=== PATIENT | female | born 1990 | race American Indian/Alaskan Native ===

== ENCOUNTER 2016-09-15 14:11 | Emergency (ER) | payer MEDICAID ==
[2016-09-15 14:20] VITALS: BP 143/77
[2016-09-15] MEDS ORDERED: Penicillin G Benzathine/Procaine 600-600 1.2 Millunits/2 ML Syringe IM ONE (14:43)
[2016-09-15] MEDS ORDERED: Acetaminophen/HYDROcodone 325-10 MG Tab PO ONE (14:43)
--- NOTE | 2016-09-15 14:43 | EDM.PDOC ---
ED HPI ENT - General Chief Complaint: ENT Problem Stated Complaint: [id number] TOOTH PAIN/EARACHE Time Seen by Provider: 09/15/16 14:38 Source of Information: Reports: Patient History Limitations: Reports: No limitations - History of Present Illness INITIAL COMMENTS - FREE TEXT/NARRATIVE: 26 White yo Female c/o left sided toothache and jaw pain since last night Pt. had dental work w/ extractions last month. Pt. denies fever or chills Symptom Onset Date: 09/14/16 Symptom Onset Time: 13:00 Timing/Duration: Reports: Day(s): Severity: moderate Location: Reports: mouth (left jaw swelling) Quality: Reports: Ache Improves with: Reports: None Associated Symptoms: Reports: no other symptoms - Related Data Allergies/ADRs: Allergies Allergy/AdvReac Type Severity Reaction Status Date / Time No Known Allergies Allergy Verified 09/15/16 14:25 Home Meds: Home Meds Ferrous Sulfate 325 mg PO TID 04/04/14 [History] Acetaminophen with Codeine [Tylenol with Codeine #3 Tablet] 325 mg PO ASDIRECTED PRN 05/22/14 [History] Insulin Detemir [Levemir] 30 unit SQ BEDTIME 02/23/16 [History] FLUoxetine HCl [Prozac] 20 mg PO DAILY 05/31/16 [History] Insulin Aspart [Novolog Flexpen] 18 units SUBCUT TIDMEALS 05/31/16 [History] Ibuprofen [Motrin] 600 mg PO Q6H 09/15/16 [History] Past Medical History - Past Health History Medical/Surgical History: Denies Medical/Surgical History Cardiovascular History: Reports: None Respiratory History: Reports: Asthma Other Respiratory History: hx of asthma Gastrointestinal History: Reports: None Genitourinary History: Reports: None 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 OB/BYN History: Three C/s's Musculoskeletal History: Reports: Back pain, chronic Neurological History: Reports: Migraines Psychiatric History: Reports: Anxiety, Depression Endocrine/Metabolic History: Reports: Diabetes, type I Other Endocrine/Metabolic History: insulin dependent during pregnacy Hematologic History: Reports: Anemia Immunologic History: Reports: None Oncologic (Cancer) History: Reports: None Dermatologic History: Reports: None - Infectious Disease History Infectious Disease History: Reports: None - Past Surgical History Head Surgeries/Procedures: Reports: None HEENT Surgical History: Reports: Other (see below) Other HEENT Surgeries/Procedures: typanostomy tube placement GI Surgical History: Reports: Cholecystectomy, EGD Female Surgical History: Reports: section Other Female Surgeries/Procedures: x3 Social & Family History - Family History Family Medical History: Noncontributory - Tobacco Use Smoking Status *Q: Former Smoker Years of Tobacco use: 10 Packs/Tins Daily: 1 Used Tobacco, but Quit: Yes Month Tobacco Last Used: 01/2016 Second Hand Smoke Exposure: No - Caffeine Use Caffeine Use: Reports: None - Alcohol Use Days Per Week of Alcohol Use: 0 - Recreational Drug Use Recreational Drug Use: No ED ROS ENT - Review of Systems Review Of Systems: See Below Constitutional: Reports: no symptoms HEENT: Reports: Other (left side toothache w/ jaw swelling) Cardiovascular: Reports: No symptoms Endocrine: Reports: no symptoms GI/Abdominal: Reports: No symptoms : Reports: no symptoms Musculoskeletal: Reports: no symptoms Skin: Reports: no symptoms Neurological: Reports: No Symptoms Psychiatric: Reports: No symptoms Hematologic/Lymphatic: Reports: no symptoms Immunologic: Reports: no symptoms ED EXAM, ENT - Physical Exam Exam: See Below Exam Limited By: No limitations General Appearance: alert, no apparent distress, severe distress Eye Exam: bilateral eye: PERRL Ears: normal external exam Nose: normal inspection Mouth/Throat: Dental pain, Dental tenderness Head: atraumatic Neck: normal inspection Respiratory/Chest: no respiratory distress Cardiovascular: normal peripheral pulses Back: normal inspection Extremities: normal inspection Neurological: alert, oriented, CN II-XII intact Psychiatric: normal affect Skin: Warm, Erythema (left jaw area w/ soft tissue) Lymphatic: no adenopathy Course - Vital Signs Text/Narrative:: discussed with patient Last Recorded V/S: Last Vital Signs Temp 36.7 C 09/15/16 14:20 Pulse 58 L 09/15/16 14:20 Resp 20 09/15/16 14:20 BP 143/77 H 09/15/16 14:20 Pulse Ox 100 09/15/16 14:20 Departure - Departure Time of Disposition: 14:49 Disposition: Home, Self-Care 01 Condition: good Clinical Impression: Fracture of tooth Qualifiers: Encounter type: initial encounter Fracture type: closed Qualified Code(s): S02.5XXA - Fracture of tooth (traumatic), initial encounter for closed fracture Forms: ED Department Discharge Additional Instructions: Good Oral Hygiene Take the [place] for pain - 5/325 take 1 tid # 30 F/U w/ Dentist on Saturday
== END 2016-09-15 14:59 | disposition home or self-care (01) ==
LOC: DL.ED 14:11
DX: S02.5XXA Fracture of tooth (traumatic), initial encounter for closed fracture (principal); J45.909 Unspecified asthma, uncomplicated; F41.9 Anxiety disorder, unspecified; F32.9 Major depressive disorder, single episode, unspecified; E10.9 Type 1 diabetes mellitus without complications; D64.9 Anemia, unspecified; Z87.891 Personal history of nicotine dependence; Z79.4 Long term (current) use of insulin; Z90.49 Acquired absence of other specified parts of digestive tract; Z79.899 Other long term (current) drug therapy; X58.XXXA Exposure to other specified factors, initial encounter
CPT/HCPCS: 96372; 99282; A9270; J0558

== ENCOUNTER 2016-12-05 14:24 | Emergency (ER) | payer MEDICAID ==
[2016-12-05 14:31] VITALS: BP 124/78
--- NOTE | 2016-12-05 14:40 | EDM.PDOC ---
ED HPI GENERAL MEDICAL PROBLEM - General Chief Complaint: Lower Extremity Injury/Pain Stated Complaint: [id number] PROBLEM WITH LEFT FOOT Time Seen by Provider: 12/05/16 14:39 Source of Information: Reports: Patient, RN, RN Notes Reviewed History Limitations: Reports: No Limitations - History of Present Illness INITIAL COMMENTS - FREE TEXT/NARRATIVE: Complaining of pain in left foot x 4-5 days without injury. Pain is worse in the mornings. Pain is localized to medial left midfoot and heel. Quality: Reports: Ache Severity: Moderate Improves with: Reports: None Associated Symptoms: Reports: No Other Symptoms Left Feet Pain Score (Numeric/FACES): 8 - Related Data Allergies Allergy/AdvReac Type Severity Reaction Status Date / Time No Known Allergies Allergy Verified 09/15/16 14:25 Home Meds: Home Meds Ferrous Sulfate 325 mg PO TID 04/04/14 [History] Acetaminophen with Codeine [Tylenol with Codeine #3 Tablet] 325 mg PO ASDIRECTED PRN 05/22/14 [History] Insulin Detemir [Levemir] 30 unit SQ BEDTIME 02/23/16 [History] FLUoxetine HCl [Prozac] 20 mg PO DAILY 05/31/16 [History] Insulin Aspart [Novolog Flexpen] 18 units SUBCUT TIDMEALS 05/31/16 [History] Ibuprofen [Motrin] 600 mg PO Q6H 09/15/16 [History] Past Medical History - Past Health History Medical/Surgical History: Denies Medical/Surgical History Cardiovascular History: Reports: None Respiratory History: Reports: Asthma Other Respiratory History: hx of asthma Gastrointestinal History: Reports: None Genitourinary History: Reports: None 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 OB/BYN History: Three C/s's Musculoskeletal History: Reports: Back Pain, Chronic Neurological History: Reports: Migraines Psychiatric History: Reports: Anxiety, Depression Endocrine/Metabolic History: Reports: Diabetes, Type I Other Endocrine/Metabolic History: insulin dependent during pregnacy Hematologic History: Reports: Anemia Immunologic History: Reports: None Oncologic (Cancer) History: Reports: None Dermatologic History: Reports: None - Infectious Disease History Infectious Disease History: Reports: None - Past Surgical History HEENT Surgical History: Reports: Other (See Below) Female Surgical History: Reports: Section Social & Family History - Family History Family Medical History: Noncontributory - Tobacco Use Smoking Status *Q: Former Smoker Years of Tobacco use: 10 Packs/Tins Daily: 1 Used Tobacco, but Quit: Yes Month Tobacco Last Used: 01/2016 Second Hand Smoke Exposure: No - Caffeine Use Caffeine Use: Reports: None - Alcohol Use Days Per Week of Alcohol Use: 0 - Recreational Drug Use Recreational Drug Use: No Review of Systems - Review of Systems Review Of Systems: ROS reveals no pertinent complaints other than HPI. ED EXAM, GENERAL - Physical Exam Exam: See Below Exam Limited By: No Limitations General Appearance: Alert, WD/WN, No Apparent Distress Back Exam: Normal Inspection, Full Range of Motion, NT Extremities: Other (Tender to palpate at medial left posterior mid foot or heel. No visible swelling, bruising, or deformity. Skin intact. Full ROM.) Neurological: Alert, Oriented, CN II-XII Intact, Normal Cognition, Normal Gait, Normal Reflexes, No Motor/Sensory Deficits Psychiatric: Normal Affect, Normal Mood Skin Exam: Warm, Dry, Intact, Normal Color, No Rash Course - Vital Signs Last Recorded V/S: Last Vital Signs Temp 36.0 C 12/05/16 14:30 Pulse 118 H 12/05/16 14:30 Resp 18 12/05/16 14:30 BP 124/78 12/05/16 14:30 Pulse Ox 100 12/05/16 14:30 - Orders/Labs/Meds Orders: Active Orders 24 hr Category Date Time Status Arnav Bandage [RC] ONETIME Care 12/05/16 15:53 Active - Radiology Interpretation Free Text/Narrative:: X-ray of left foot: Per rad report negative. Departure - Departure Time of Disposition: 15:51 Disposition: Home, Self-Care 01 Condition: Good Clinical Impression: Plantar fasciitis of left foot - Discharge Information Instructions: Plantar Fasciitis With Rehab-SportsMed Referrals: Leyla Portillo MD [Primary Care Provider] - Forms: ED Department Discharge Additional Instructions: Follow up in clinic next week for recheck. - My Orders Last 24 Hours: My Active Orders 12/05/16 15:53 Arnav Bandage [RC] ONETIME - Assessment/Plan Last 24 Hours: My Active Orders 12/05/16 15:53 Arnav Bandage [RC] ONETIME
--- NOTE | 2016-12-05 16:56 | CR ---
Clinical history: 26-year-old gravid ("2 months") female with left midfoot and heel pain. Interpretation: (Patient "double shielded") Dense reactive sclerosis talonavicular surface of the navicular bone. Recommend comparison oblique v iew "normal" right foot. (If symptomatology and clinical suspicion persists suggest orthopedic consultation and MRI of the fo ot be considered) No sign of foreign body, left foot fracture or dislocation. No heel spurs.
== END 2016-12-05 16:00 | disposition home or self-care (01) ==
LOC: DL.ED 14:24
DX: M72.2 Plantar fascial fibromatosis (principal); J45.909 Unspecified asthma, uncomplicated; G43.909 Migraine, unspecified, not intractable, without status migrainosus; F41.9 Anxiety disorder, unspecified; F32.9 Major depressive disorder, single episode, unspecified; E10.9 Type 1 diabetes mellitus without complications; D64.9 Anemia, unspecified; Z87.891 Personal history of nicotine dependence
CPT/HCPCS: 73630-LT; 99283

== ENCOUNTER 2017-09-04 15:05 | Emergency (ER) | payer SELFPAY ==
[2017-09-04 15:26] VITALS: BP 152/89
[2017-09-04] MEDS ORDERED: Amoxicillin 500 MG Cap PO ONE (15:38)
[2017-09-04] MEDS ORDERED: metroNIDAZOLE 250 MG Tab PO ONE (15:38)
[2017-09-04] MEDS ORDERED: traMADol 50 MG Tab PO ONE (15:39)
--- NOTE | 2017-09-06 13:54 | EDM.PDOC ---
Scribed by Matilda Rollins 09/06/17 [id number] for Soto Gordon MD ED HPI GENERAL MEDICAL PROBLEM - General Chief Complaint: ENT Problem Stated Complaint: [id number] TROUBLE WITH TOOTH Time Seen by Provider: 09/04/17 15:33 Source of Information: Reports: Patient, RN, RN Notes Reviewed History Limitations: Reports: No Limitations - History of Present Illness INITIAL COMMENTS - FREE TEXT/NARRATIVE: Patient presents with complaint of dental pain at left upper molar for greater than 1 month. Over the past week the pain has become severe and sharp. Patient reports no relief with Tylenol. She can't get into the dentist for another 2 weeks. Today she began to have swelling of the left face. Onset: Gradual Duration: Getting Worse Location: Reports: Face Quality: Reports: Ache Severity: Severe Improves with: Reports: None Worsens with: Reports: None Associated Symptoms: Reports: No Other Symptoms Left Upper Oral/Mouth Pain Score (Numeric/FACES): 10 - Related Data Allergies Allergy/AdvReac Type Severity Reaction Status Date / Time No Known Allergies Allergy Verified 05/05/17 13:17 Home Meds: Home Meds Ferrous Sulfate 325 mg PO TID 04/04/14 [History] Insulin Detemir [Levemir] 40 unit SQ BEDTIME 02/23/16 [History] FLUoxetine HCl [Prozac] 20 mg PO DAILY 05/31/16 [History] Insulin Aspart [Novolog Flexpen] 18 units SUBCUT TIDMEALS 05/31/16 [History] Past Medical History - Past Health History Medical/Surgical History: Denies Medical/Surgical History Cardiovascular History: Reports: None Respiratory History: Reports: Asthma Other Respiratory History: hx of asthma Gastrointestinal History: Reports: None Genitourinary History: Reports: None 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 OB/BYN History: Three C/s's Musculoskeletal History: Reports: Back Pain, Chronic Neurological History: Reports: Migraines Psychiatric History: Reports: Anxiety, Depression Endocrine/Metabolic History: Reports: Diabetes, Type II, Obesity/BMI 30+ Other Endocrine/Metabolic History: Insulin Dependent Hematologic History: Reports: Anemia Immunologic History: Reports: None Oncologic (Cancer) History: Reports: None Dermatologic History: Reports: None - Infectious Disease History Infectious Disease History: Reports: MRSA - Past Surgical History Head Surgeries/Procedures: Reports: None HEENT Surgical History: Reports: Other (See Below) Female Surgical History: Reports: Section Other Female Surgeries/Procedures: C/S x4 Social & Family History - Family History Family Medical History: Noncontributory - Tobacco Use Smoking Status *Q: Current Every Day Smoker Years of Tobacco use: 5 Packs/Tins Daily: 0.5 Used Tobacco, but Quit: Yes Month/Year Tobacco Last Used: 05/2017 Second Hand Smoke Exposure: No - Caffeine Use Caffeine Use: Reports: Soda - Alcohol Use Days Per Week of Alcohol Use: 0 - Recreational Drug Use Recreational Drug Use: No - Living Situation & Occupation Living situation: Reports: with Family ED ROS ENT - Review of Systems Review Of Systems: ROS reveals no pertinent complaints other than HPI. ED EXAM, ENT - Physical Exam Exam: See Below Exam Limited By: No Limitations General Appearance: Alert, WD/WN, No Apparent Distress Eye Exam: Bilateral Eye: Normal Inspection Ears: Normal External Exam, Normal Canal, Hearing Grossly Normal, Normal TMs Nose: Normal Inspection, Normal Mucousa, No Blood Mouth/Throat: Normal Lips, Normal Oropharynx, Dental Abcess (left maxillary molar), Dental Pain, Dental Tenderness, Gum Swelling Head: Facial Swelling (mild at left face with no erythema.) Neck: Normal Inspection, Supple, Non-Tender, Full Range of Motion Respiratory/Chest: No Respiratory Distress Cardiovascular: Regular Rate, Rhythm Neurological: Alert, Oriented, CN II-XII Intact, Normal Cognition, Normal Gait, Normal Reflexes, No Motor/Sensory Deficits Psychiatric: Normal Affect, Normal Mood Skin: Warm, Dry, Intact, Normal Color, No Rash Course - Vital Signs Last Recorded V/S: Last Vital Signs Temp 37.1 C 09/04/17 15:10 Pulse 65 09/04/17 15:10 Resp 16 09/04/17 15:10 BP 152/89 H 09/04/17 15:10 Pulse Ox - Orders/Labs/Meds Meds: Medications Discontinued Medications Generic Name Dose Route Start Last Admin Trade Name Pedro Luisq PRN Reason Stop Dose Admin Amoxicillin 500 mg 09/04/17 15:38 09/04/17 16:48 Amoxil PO 09/04/17 15:39 Not Given ONETIME ONE Metronidazole 50 mg 09/04/17 15:38 09/04/17 16:48 Metronidazole PO 09/04/17 15:39 Not Given ONETIME ONE Tramadol HCl 50 mg 09/04/17 15:39 09/04/17 16:48 Ultram PO 09/04/17 15:40 Not Given ONETIME ONE Departure - Departure Time of Disposition: 15:46 Disposition: Home, Self-Care 01 Condition: Good Clinical Impression: Dental caries, Dental abscess - Discharge Information Instructions: Dental Abscess, [id number] Forms: ED Department Discharge Additional Instructions: RX: Amoxicillin 500mg. RX: Flagyl 500mg. RX: Tylenol #3. *DO NOT DRIVE while under the influence of this medication. RX: Viscous Liodcaine 2%. Follow up with dentist at first available appointment. I have read and agree with the documentation that has been completed regarding this visit. By signing this record, I attest that the documentation was completed in my physical presence and is an accurate record of the encounter.
== END 2017-09-04 16:02 | disposition home or self-care (01) ==
LOC: DL.ED 15:05
DX: K04.7 Periapical abscess without sinus (principal); K02.9 Dental caries, unspecified; E11.9 Type 2 diabetes mellitus without complications; E66.9 Obesity, unspecified; Z79.4 Long term (current) use of insulin; F17.210 Nicotine dependence, cigarettes, uncomplicated; Z79.899 Other long term (current) drug therapy
CPT/HCPCS: 99282

== ENCOUNTER 2019-01-31 11:29 | Emergency (ER) | payer MEDICAID ==
[2019-01-31] MEDS ORDERED: Furosemide 40 MG/4 ML VIAL IVPUSH ONE (12:11)
[2019-01-31] MEDS ORDERED: Acetaminophen 325 MG Tab PO ONE (12:11)
[2019-01-31] MEDS ORDERED: diphenhydrAMINE 50 MG/ML SDV IV ONE (12:11)
[2019-01-31 12:17] LABS: ANION GAP 13.2; CHLORIDE,CL 103 mmol/L (101-111); SODIUM,NA 136 mmol/L (135-145)
--- NOTE | 2019-01-31 13:08 | EDM.PDOC ---
Scribed by Matilda Rollins 01/31/19 1147 for Soto Gordon MD ED HPI GENERAL MEDICAL PROBLEM - General Chief Complaint: General Stated Complaint: LIGHT HEADED/SIDE PAINS Time Seen by Provider: 01/31/19 11:39 Source of Information: Reports: Patient, Old Records, RN, RN Notes Reviewed History Limitations: Reports: No Limitations - History of Present Illness INITIAL COMMENTS - FREE TEXT/NARRATIVE: Patient presents to ER with complaint of 3 days duration of intermittent lightheadedness/dizziness especially when bending over. Pt states she has come close to fainting several times but has not had a complete LOC. She reports right sided abdominal pain for the last couple of days. Pt also c/o generalized body, flank, and back pains without specific injury. She has felt short of breath with exertion, but also thinks that it may be related to anxiety and depression because she has "had a hard and stressful week", but does not wish to share the details. Pt reports heavy menses, and is current on her period. She denies rectal bleeding, black, bloody, or tarry stool. She denies cough, N/V /D, fevers, abdominal pain, or headache. She does not think she is , but hasn't checked a test. She is unsure of her LMP. 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 Onset: Gradual Duration: Day(s): (3), Intermittent, Waxing/Waning Location: Reports: Generalized Quality: Reports: Ache Severity: Moderate Improves with: Reports: None Worsens with: Reports: None Associated Symptoms: Reports: No Other Symptoms Generalized Pain Score (Numeric/FACES): 5 - Related Data Allergies Allergy/AdvReac Type Severity Reaction Status Date / Time No Known Allergies Allergy Verified 01/31/19 11:40 Home Meds: Home Meds Insulin Detemir [Levemir] 40 unit SQ BEDTIME 02/23/16 [History] FLUoxetine HCl [Prozac] 20 mg PO DAILY 05/31/16 [History] Insulin Aspart [Novolog Flexpen] 18 units SUBCUT TIDMEALS 05/31/16 [History] Past Medical History - Past Health History Medical/Surgical History: Denies Medical/Surgical History HEENT History: Reports: None Cardiovascular History: Reports: None Respiratory History: Reports: Asthma Other Respiratory History: hx of asthma Gastrointestinal History: Reports: None Genitourinary History: Reports: None 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: Other 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 OFFICER History: Three C/s's Musculoskeletal History: Reports: Back Pain, Chronic Neurological History: Reports: Migraines Psychiatric History: Reports: Anxiety, Depression Endocrine/Metabolic History: Reports: Diabetes, Type II, IDDM, Obesity/BMI 30+ Other Endocrine/Metabolic History: Insulin Dependent Hematologic History: Reports: Anemia Immunologic History: Reports: None Oncologic (Cancer) History: Reports: None Dermatologic History: Reports: None - Infectious Disease History Infectious Disease History: Reports: MRSA - Past Surgical History Head Surgeries/Procedures: Reports: None HEENT Surgical History: Reports: Other (See Below) Other HEENT Surgeries/Procedures: Respiratory Surgical History: Reports: None Female Surgical History: Reports: Section, Tubal Ligation Other Female Surgeries/Procedures: C/S x4 Social & Family History - Family History Family Medical History: Noncontributory - Caffeine Use Caffeine Use: Reports: Soda - Living Situation & Occupation Living situation: Reports: with Family Occupation: Employed ED ROS GENERAL - Review of Systems Review Of Systems: ROS reveals no pertinent complaints other than HPI. ED EXAM, GENERAL - Physical Exam Exam: See Below Exam Limited By: No Limitations General Appearance: Alert, WD/WN, No Apparent Distress Eye Exam: Bilateral Eye: EOMI, Normal Inspection, PERRL Ears: Normal External Exam, Hearing Grossly Normal Nose: Normal Inspection, Normal Mucosa, No Blood Throat/Mouth: Normal Inspection, Normal Lips, Normal Oropharynx, Normal Voice, No Airway Compromise Head: Atraumatic, Normocephalic Neck: Normal Inspection, Supple, Non-Tender, Full Range of Motion Respiratory/Chest: No Respiratory Distress, Lungs Clear, Normal Breath Sounds, No Accessory Muscle Use, Chest Non-Tender Cardiovascular: Normal Peripheral Pulses, Regular Rate, Rhythm, No Edema, No Murmur, Tachycardia GI/Abdominal: Normal Bowel Sounds, Soft, Non-Tender, No Organomegaly, No Distention, No Abnormal Bruit, No Mass (Female) Exam: Vaginal Bleeding Rectal (Female) Exam: Heme + Stool Back Exam: Normal Inspection, Full Range of Motion. No: CVA Tenderness (L), CVA Tenderness (R) Extremities: Normal Inspection Neurological: Alert, Oriented, CN II-XII Intact, Normal Cognition, Normal Gait, No Motor/Sensory Deficits Psychiatric: Depressed Mood, Flat Affect Skin Exam: Warm, Dry, Intact, Normal Color, No Rash EKG INTERPRETATION EKG Date: 01/31/19 Time: 11:42 Rhythm: NSR [place]: Normal P-Wave: Present QRS: Normal ST-T: Normal QT: Normal Comparison: NA - No Prior EKG Course - Vital Signs Last Recorded V/S: Last Vital Signs Temp 97.3 F 01/31/19 11:36 Pulse 109 H 01/31/19 11:36 Resp 16 01/31/19 11:36 BP 101/58 L 01/31/19 11:36 Pulse Ox 100 01/31/19 11:36 Orthostatic Blood Pressure [ 104/57 Standing] Orthostatic Blood Pressure [ 109/55 Sitting] Orthostatic Blood Pressure [ 114/55 Supine] - Orders/Labs/Meds Orders: Active Orders 24 hr Category Date Time Status EKG 12 Lead [EKG Documentation Completion] [RC] STAT Care 01/31/19 11:42 Active Orthostatic Vital Signs [RC] ASDIRECTED Care 01/31/19 11:41 Active Verify Patient Consent Obtain [RC] ASDIRECTED Care 01/31/19 12:11 Active CULTURE URINE [RM] Stat Lab 01/31/19 11:57 Received RED BLOOD CELLS LP [BBK] Stat Lab 01/31/19 11:50 Received TYPE AND SCREEN [BBK] Stat Lab 01/31/19 11:50 Received Blood Transfusion Reflex Orders [OM.PC] Routine Oth 01/31/19 12:11 Ordered Peripheral IV Insertion Adult [OM.PC] Urgent Oth 01/31/19 12:11 Ordered Transfuse Red Blood Cells [COMM] Stat Oth 01/31/19 12:11 Ordered Labs: Laboratory Tests 01/31/19 01/31/19 01/31/19 Range/Units 11:50 11:50 11:50 WBC 8.5 (5.0-10.0) 10^3/uL RBC 3.28 L (4.2-5.4) 10^6/uL Hgb 6.2 L* D (12.0-16.0) g/dL Hct 22.1 L (37.0-47.0) % MCV 67.4 L D (80-100) fL MCH 18.9 L (27.0-34.0) pg MCHC 28.1 L (33.0-35.0) g/dL Plt Count 242 (150-450) 10^3/uL Neut % (Auto) 76.2 H (42.2-75.2) % Lymph % (Auto) 13.0 L (20.5-50.1) % [place] % (Auto) 10.2 H (2-8) % Eos % (Auto) 0.2 L (1.0-3.0) % Baso % (Auto) 0.4 (0.0-1.0) % PT (9.0-12.0) SEC INR (0.9-1.2) APTT (22.0-34.0) SEC D-Dimer, Quantitative 699 H (0-400) ng/mL Sodium 136 (135-145) mmol/L Potassium 3.2 L (3.6-5.0) mmol/L Chloride 103 (101-111) mmol/L Carbon Dioxide 23.0 (21.0-31.0) mmol/L Anion Gap 13.2 BUN 5 L (7-18) mg/dL Creatinine 0.6 (0.6-1.3) mg/dL Est Cr Clr Drug Dosing TNP Estimated GFR (MDRD) > 60 BUN/Creatinine Ratio 8.33 Glucose 183 H (74-105) mg/dL Calcium 8.4 (8.4-10.2) mg/dl Total Bilirubin 0.5 (0.2-1.0) mg/dL AST 14 (10-42) IU/L ALT 10 (10-60) IU/L Alkaline Phosphatase 64 (42-121) IU/L Total Protein 7.0 (6.7-8.2) g/dl Albumin 3.2 (3.2-5.5) g/dl Globulin 3.8 Albumin/Globulin Ratio 0.84 Urine Color (YELLOW) Urine Appearance (CLEAR) Urine pH (5.0-9.0) Ur Specific [place] (1.005-1.030) Urine Protein (NEGATIVE) Urine Glucose (UA) (NEGATIVE) Urine Ketones (NEGATIVE) Urine Occult Blood (NEGATIVE) Urine Nitrite (NEGATIVE) Urine Bilirubin (NEGATIVE) Urine Urobilinogen (0.2-1.0) mg/dL Ur Leukocyte Esterase (NEGATIVE) Urine RBC /HPF Urine WBC (0-5/HPF) /HPF Ur Epithelial Cells (NOT SEEN) /HPF Urine Bacteria (0-FEW/HPF) /HPF Urine Mucus (NOT SEEN) /LPF Urine HCG, Qual 01/31/19 01/31/19 01/31/19 Range/Units 11:50 11:57 11:57 WBC (5.0-10.0) 10^3/uL RBC (4.2-5.4) 10^6/uL Hgb (12.0-16.0) g/dL Hct (37.0-47.0) % MCV (80-100) fL MCH (27.0-34.0) pg MCHC (33.0-35.0) g/dL Plt Count (150-450) 10^3/uL Neut % (Auto) (42.2-75.2) % Lymph % (Auto) (20.5-50.1) % [place] % (Auto) (2-8) % Eos % (Auto) (1.0-3.0) % Baso % (Auto) (0.0-1.0) % PT 10.2 (9.0-12.0) SEC INR 1.0 (0.9-1.2) APTT 26.3 (22.0-34.0) SEC D-Dimer, Quantitative (0-400) ng/mL Sodium (135-145) mmol/L Potassium (3.6-5.0) mmol/L Chloride (101-111) mmol/L Carbon Dioxide (21.0-31.0) mmol/L Anion Gap BUN (7-18) mg/dL Creatinine (0.6-1.3) mg/dL Est Cr Clr Drug Dosing Estimated GFR (MDRD) BUN/Creatinine Ratio Glucose (74-105) mg/dL Calcium (8.4-10.2) mg/dl Total Bilirubin (0.2-1.0) mg/dL AST (10-42) IU/L ALT (10-60) IU/L Alkaline Phosphatase (42-121) IU/L Total Protein (6.7-8.2) g/dl Albumin (3.2-5.5) g/dl Globulin Albumin/Globulin Ratio Urine Color Red (YELLOW) Urine Appearance Cloudy (CLEAR) Urine pH 6.0 (5.0-9.0) Ur Specific [place] 1.020 (1.005-1.030) Urine Protein 100 H (NEGATIVE) Urine Glucose (UA) 100 H (NEGATIVE) Urine Ketones Negative (NEGATIVE) Urine Occult Blood Large H (NEGATIVE) Urine Nitrite Negative (NEGATIVE) Urine Bilirubin Small H (NEGATIVE) Urine Urobilinogen 0.2 (0.2-1.0) mg/dL Ur Leukocyte Esterase Large H (NEGATIVE) Urine RBC Semi-packed H /HPF Urine WBC 75-100 H (0-5/HPF) /HPF Ur Epithelial Cells Few (NOT SEEN) /HPF Urine Bacteria Rare (0-FEW/HPF) /HPF Urine Mucus Rare (NOT SEEN) /LPF Urine HCG, Qual Negative Meds: Medications Discontinued Medications Generic Name Dose Route Start Last Admin Trade Name Shani PRN Reason Stop Dose Admin Acetaminophen 650 mg 01/31/19 12:11 Tylenol PO 01/31/19 12:12 NOW ONE Diphenhydramine HCl 25 mg 01/31/19 12:11 Benadryl IV 01/31/19 12:12 ONETIME ONE Furosemide 20 mg 01/31/19 12:11 Lasix IVPUSH 01/31/19 12:12 NOW ONE Departure - Departure Time of Disposition: 13:06 Disposition: DC/Tfer to Acute Hospital 02 Condition: Serious Clinical Impression: Symptomatic anemia, Heme positive stool Menorrhagia Qualifiers: Menorrahagia type: with regular cycle Qualified Code(s): N92.0 - Excessive and frequent menstruation with regular cycle - Discharge Information *PRESCRIPTION DRUG MONITORING PROGRAM REVIEWED*: No *COPY OF PRESCRIPTION DRUG MONITORING REPORT IN PATIENT GIOVANY: No Forms: ED Department Discharge, Interfacility Transfer EMTALA - My Orders Last 24 Hours: My Active Orders 01/31/19 11:41 Orthostatic Vital Signs [RC] ASDIRECTED 01/31/19 11:42 EKG 12 Lead [EKG Documentation Completion] [RC] STAT 01/31/19 11:50 RED BLOOD CELLS LP [BBK] Stat TYPE AND SCREEN [BBK] Stat 01/31/19 11:57 CULTURE URINE [RM] Stat 01/31/19 12:11 Verify Patient Consent Obtain [RC] ASDIRECTED Blood Transfusion Reflex Orders [OM.PC] Routine Peripheral IV Insertion Adult [OM.PC] Urgent Transfuse Red Blood Cells [COMM] Stat - Assessment/Plan Last 24 Hours: My Active Orders 01/31/19 11:41 Orthostatic Vital Signs [RC] ASDIRECTED 01/31/19 11:42 EKG 12 Lead [EKG Documentation Completion] [RC] STAT 01/31/19 11:50 RED BLOOD CELLS LP [BBK] Stat TYPE AND SCREEN [BBK] Stat 01/31/19 11:57 CULTURE URINE [RM] Stat 01/31/19 12:11 Verify Patient Consent Obtain [RC] ASDIRECTED Blood Transfusion Reflex Orders [OM.PC] Routine Peripheral IV Insertion Adult [OM.PC] Urgent Transfuse Red Blood Cells [COMM] Stat I have read and agree with the documentation that has been completed regarding this visit. By signing this record, I attest that the documentation was completed in my physical presence and is an accurate record of the encounter.
[2019-01-31 13:33] VITALS: BP 93/55
== END 2019-01-31 13:35 ==
LOC: DL.ED 11:29
DX: N92.0 Excessive and frequent menstruation with regular cycle (principal); D64.9 Anemia, unspecified; R19.5 Other fecal abnormalities; E11.9 Type 2 diabetes mellitus without complications; F41.9 Anxiety disorder, unspecified; F32.9 Major depressive disorder, single episode, unspecified; Z79.4 Long term (current) use of insulin; Z79.899 Other long term (current) drug therapy; Z86.14 Personal history of Methicillin resistant Staphylococcus aureus infection
CPT/HCPCS: 36415; 36430; 80053; 81001; 81025; 82272; 85025; 85379; 85610; 85730; 86850; 86900; 86901; 86920; 86922; 87086; 93005; 99284; A9270; J1200; J1940; P9016; 87088; 87186

== ENCOUNTER 2019-11-24 22:41 | Emergency (ER) | payer MEDICAID ==
[2019-11-24 23:09] VITALS: BP 100/59; PULSE 86
[2019-11-24] MEDS ORDERED: Cephalexin 500 MG Cap PO ONE (23:20)
[2019-11-24] MEDS ORDERED: Bacitracin Oint 1 GM U/D Packet TOP ONE (23:22)
--- NOTE | 2019-11-24 23:26 | EDM.PDOC ---
ED HPI GENERAL MEDICAL PROBLEM - General Chief Complaint: Wound Recheck Stated Complaint: FOOT PROBLEMS Time Seen by Provider: 11/24/19 23:15 Source of Information: Reports: Patient History Limitations: Reports: No Limitations - History of Present Illness INITIAL COMMENTS - FREE TEXT/NARRATIVE: This 29 yo female patient reports to the ED with redness and swelling to the right heel. The patient reports she thinks her heel has been rubbing in her shoe. Today, the patient noticed the area was starting to have more swelling and redness. The patient reports she did put some antibiotic ointment on the wound with no improvement. Onset: Today Duration: Constant, Getting Worse Location: Reports: Lower Extremity, Right Quality: Reports: Ache, Dull Severity: Moderate Improves with: Reports: None Worsens with: Reports: None Context: Reports: Other Associated Symptoms: Reports: No Other Symptoms Right Feet Pain Score (Numeric/FACES): 7 - Related Data Allergies Allergy/AdvReac Type Severity Reaction Status Date / Time No Known Allergies Allergy Verified 11/24/19 23:09 Home Meds: Home Meds . 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 Musculoskeletal History: Reports: Back Pain, Chronic Neurological History: Reports: Migraines Psychiatric History: Reports: Anxiety, Depression Endocrine/Metabolic History: Reports: Diabetes, Type II, IDDM, Obesity/BMI 30+ Other Endocrine/Metabolic History: Insulin Dependent Hematologic History: Reports: Anemia Immunologic History: Reports: None Oncologic (Cancer) History: Reports: None Dermatologic History: Reports: None - Infectious Disease History Infectious Disease History: Reports: MRSA - Past Surgical History Head Surgeries/Procedures: Reports: None Respiratory Surgical History: Reports: None Female Surgical History: Reports: Section, Tubal Ligation Other Female Surgeries/Procedures: C/S x4 Social & Family History - Family History Family Medical History: Noncontributory - Tobacco Use Smoking Status *Q: Current Every Day Smoker Years of Tobacco use: 6 Packs/Tins Daily: 0.1 Second Hand Smoke Exposure: Yes - Caffeine Use Caffeine Use: Reports: Soda - Recreational Drug Use Recreational Drug Use: No - Living Situation & Occupation Living situation: Reports: with Family Occupation: Employed ED ROS GENERAL - Review of Systems Review Of Systems: Comprehensive ROS is negative, except as noted in HPI. ED EXAM, SKIN/RASH Exam: See Below Exam Limited By: No Limitations General Appearance: Alert, WD/WN, Mild Distress Eye Exam: Bilateral Eye: EOMI, Normal Inspection, PERRL Ears: Normal External Exam, Normal Canal, Hearing Grossly Normal, Normal TMs Nose: Normal Inspection, Normal Mucosa, No Blood Throat/Mouth: Normal Inspection, Normal Lips, Normal Teeth, Normal Gums, Normal Oropharynx, Normal Voice, No Airway Compromise Head: Atraumatic, Normocephalic Neck: Normal Inspection, Supple, Non-Tender, Full Range of Motion Respiratory/Chest: No Respiratory Distress, Lungs Clear, Normal Breath Sounds, No Accessory Muscle Use, Chest Non-Tender Cardiovascular: Normal Peripheral Pulses, Regular Rate, Rhythm, No Edema, No Gallop, No JVD, No Murmur, No Rub GI/Abdominal: Normal Bowel Sounds, Soft, Non-Tender, No Organomegaly, No Distention, No Abnormal Bruit, No Mass (Female) Exam: Deferred Rectal (Female) Exam: Deferred Back Exam: Normal Inspection, Full Range of Motion, NT Extremities: Leg Pain (right heel pain with erytherma ) Neurological: Alert, Oriented, CN II-XII Intact, Normal Cognition, Normal Gait, Normal Reflexes, No Motor/Sensory Deficits Skin: Warm, Dry, Intact, Erythema, Wound/Incision Location, Skin: Lower Extremity, Right Associated features: Warmth, Tenderness, Swelling Lymphatic: No Adenopathy Course - Vital Signs Last Recorded V/S: Last Vital Signs Temp 36.5 C 11/24/19 23:04 Pulse 86 11/24/19 23:04 Resp 18 11/24/19 23:04 BP 100/59 L 11/24/19 23:04 Pulse Ox 98 11/24/19 23:04 - Orders/Labs/Meds Orders: Active Orders 24 hr Category Date Time Status cephALEXin [Keflex] Med 11/24/19 23:20 Once 500 mg PO ONETIME ONE Departure - Departure Time of Disposition: 23:27 Disposition: Home, Self-Care 01 Condition: Fair Clinical Impression: Cellulitis Qualifiers: Site of cellulitis: extremity Site of cellulitis of extremity: lower extremity Laterality: right Qualified Code(s): L03.115 - Cellulitis of right lower limb - Discharge Information *PRESCRIPTION DRUG MONITORING PROGRAM REVIEWED*: Not Applicable *COPY OF PRESCRIPTION DRUG MONITORING REPORT IN PATIENT GIOVANY: Not Applicable Instructions: Cellulitis, Adult, [id number] Care Plan Goals: The patient was advised of the examination results during the visit. The patient was given an oral dose of Keflex (500 mg) while in the ED and her wound was dressed with antibiotic ointment. The patient was discharged with a script for Keflex (500 mg) #40 to take 1 by mouth 4 times per day for 10 days. If the patient has any additional symptoms or concerns, the patient should either return to the emergency department or visit her primary care facility. Sepsis Event Note (ED) - Evaluation Sepsis Screening Result: No Definite Risk - Focused Exam Vital Signs: Vital Signs Temp Pulse Resp BP Pulse Ox 11/24/19 23:04 36.5 C 86 18 100/59 L 98 - My Orders Last 24 Hours: My Active Orders 11/24/19 23:20 cephALEXin [Keflex] 500 mg PO ONETIME ONE - Assessment/Plan Last 24 Hours: My Active Orders 11/24/19 23:20 cephALEXin [Keflex] 500 mg PO ONETIME ONE
== END 2019-11-24 23:37 | disposition home or self-care (01) ==
LOC: DL.ED 22:41
DX: L03.115 Cellulitis of right lower limb (principal); F17.210 Nicotine dependence, cigarettes, uncomplicated; E11.9 Type 2 diabetes mellitus without complications; E66.9 Obesity, unspecified; Z68.29 Body mass index [BMI] 29.0-29.9, adult
CPT/HCPCS: 99283; A9270

== ENCOUNTER 2020-08-14 13:00 | Emergency (ER) | payer SELFPAY ==
[2020-08-14 13:44] VITALS: BP 113/68; PULSE 108
[2020-08-14 14:24] LABS: CORONAVIRUS COVID-19 NAA NEGATIVE (NEGATIVE)
[2020-08-14] MEDS ORDERED: Sodium Chloride 0.9% 1,000 ML IV ONE (15:19)
[2020-08-14 16:05] LABS: ANION GAP 14.2 mEq/L (7-13); CHLORIDE,CL 105 mmol/L (98-107); SODIUM,NA 142 mmol/L (136-145)
--- NOTE | 2020-08-14 16:27 | CR ---
PROCEDURE INFORMATION: Exam: XR Chest Exam date and time: 08/14/2020 3:53 PM Age: 30 years old Clinical indication: Cough; Additional info: Cough, chest pain TECHNIQUE: Imaging protocol: XR of the chest Views: 2 views. COMPARISON: No relevant prior studies available. FINDINGS: Lungs: Unremarkable. No consolidation. Pleural spaces: Unremarkable. No pleural effusion. No pneumothorax. Heart/Mediastinum: Unremarkable. No cardiomegaly. Bones/joints: Age appropriate. IMPRESSION: Normal chest.
--- NOTE | 2020-08-14 17:02 | EDM.PDOC ---
Scribed by Matilda Rollins 08/14/20 [id number] for Brittney Traylor NP ED HPI GENERAL MEDICAL PROBLEM - General Chief Complaint: General Stated Complaint: COUGH,CHILLS,CHEST PAIN 3 WEEKS Time Seen by Provider: 08/14/20 15:10 Source of Information: Reports: Patient, RN, RN Notes Reviewed History Limitations: Reports: No Limitations - History of Present Illness INITIAL COMMENTS - FREE TEXT/NARRATIVE: Patient is a 30-year-old female who presents to ER with complaint of cough and chest pain. Intermittent fever and chills. She has nonproductive cough. All of these symptoms for 3 weeks with decreased appetite. She has had slight diarrhea. No nausea or vomiting. Onset: Gradual Duration: Constant Location: Reports: Chest Quality: Reports: Ache Severity: Severe Improves with: Reports: None Worsens with: Reports: None Associated Symptoms: Reports: No Other Symptoms Chest Pain Score (Numeric/FACES): 8 - Related Data Allergies Allergy/AdvReac Type Severity Reaction Status Date / Time No Known Allergies Allergy Verified 08/14/20 13:35 Home Meds: Home Meds . 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 LODGE CLERK History: Three C/s's Musculoskeletal History: Reports: Back Pain, Chronic Neurological History: Reports: Migraines Psychiatric History: Reports: Anxiety, Depression Endocrine/Metabolic History: Reports: Diabetes, Type II, IDDM, Obesity/BMI 30+ Other Endocrine/Metabolic History: Insulin Dependent Hematologic History: Reports: Anemia Immunologic History: Reports: None Oncologic (Cancer) History: Reports: None Dermatologic History: Reports: None - Infectious Disease History Infectious Disease History: Reports: MRSA - Past Surgical History Head Surgeries/Procedures: Reports: None Respiratory Surgical History: Reports: None GI Surgical History: Reports: Cholecystectomy, EGD Female Surgical History: Reports: Section, Tubal Ligation Other Female Surgeries/Procedures: C/S x4 Social & Family History - Family History Family Medical History: No Pertinent Family History - Caffeine Use Caffeine Use: Reports: Soda - Living Situation & Occupation Living situation: Reports: with Family Occupation: Employed ED ROS GENERAL - Review of Systems Review Of Systems: Comprehensive ROS is negative, except as noted in HPI. ED EXAM, GENERAL - Physical Exam Exam: See Below Exam Limited By: No Limitations General Appearance: Alert, WD/WN, No Apparent Distress Eye Exam: Bilateral Eye: EOMI, Normal Inspection, PERRL Nose: Normal Inspection, Normal Mucosa, No Blood Throat/Mouth: Normal Inspection, Normal Lips, Normal Teeth, Normal Gums, Normal Oropharynx, Normal Voice, No Airway Compromise Head: Atraumatic, Normocephalic Neck: Normal Inspection, Supple, Non-Tender, Full Range of Motion Respiratory/Chest: Decreased Breath Sounds Cardiovascular: Normal Peripheral Pulses, Regular Rate, Rhythm, No Edema, No Gallop, No JVD, No Murmur, No Rub GI/Abdominal: Normal Bowel Sounds, Soft, Non-Tender, No Organomegaly, No Distention, No Abnormal Bruit, No Mass (Female) Exam: Deferred Rectal (Female) Exam: Deferred Back Exam: Normal Inspection, Full Range of Motion, NT Extremities: Normal Inspection, Normal Range of Motion, Non-Tender, Normal Capillary Refill, No Pedal Edema Neurological: Alert, Oriented, CN II-XII Intact, Normal Cognition, Normal Gait, Normal Reflexes, No Motor/Sensory Deficits Psychiatric: Flat Affect Skin Exam: Warm, Dry, Intact, Normal Color, No Rash Lymphatic: No Adenopathy Course - Vital Signs Last Recorded V/S: Last Vital Signs Temp 98.2 F 08/14/20 13:37 Pulse 108 H 08/14/20 13:37 Resp 20 08/14/20 13:37 BP 113/68 08/14/20 13:37 Pulse Ox 100 08/14/20 13:37 - Orders/Labs/Meds Labs: Laboratory Tests 08/14/20 08/14/20 08/14/20 Range/Units 13:30 13:30 13:30 WBC (5.0-10.0) 10^3/uL RBC (4.2-5.4) 10^6/uL Hgb (12.0-16.0) g/dL Hct (37.0-47.0) % MCV (80-100) fL MCH (27.0-34.0) pg MCHC (33.0-35.0) g/dL Plt Count (150-450) 10^3/uL Neut % (Auto) (42.2-75.2) % Lymph % (Auto) (20.5-50.1) % [place] % (Auto) (2-8) % Eos % (Auto) (1.0-3.0) % Baso % (Auto) (0.0-1.0) % Sodium (136-145) mmol/L Potassium (3.5-5.1) mmol/L Chloride (98-107) mmol/L Carbon Dioxide (21-32) mmol/L Anion Gap (7-13) mEq/L BUN (7-18) mg/dL Creatinine (0.55-1.02) mg/dL Est Cr Clr Drug Dosing mL/min Estimated GFR (MDRD) BUN/Creatinine Ratio (No establ ref range) Glucose (74-99) mg/dL Calcium (8.5-10.1) mg/dL Total Bilirubin (0.2-1.0) mg/dL AST (15-37) U/L ALT (14-59) U/L Alkaline Phosphatase (46-116) U/L Total Protein (6.4-8.2) g/dL Albumin (3.4-5.0) g/dL Globulin Albumin/Globulin Ratio Urine Color Yellow (YELLOW) Urine Appearance Clear (CLEAR) Urine pH 5.5 (5.0-9.0) Ur Specific [place] 1.020 (1.005-1.030) Urine Protein Negative (NEGATIVE) Urine Glucose (UA) Negative (NEGATIVE) Urine Ketones Negative (NEGATIVE) Urine Occult Blood Negative (NEGATIVE) Urine Nitrite Negative (NEGATIVE) Urine Bilirubin Negative (NEGATIVE) Urine Urobilinogen 0.2 (0.2-1.0) mg/dL Ur Leukocyte Esterase Negative (NEGATIVE) Urine Opiates Screen Negative (NEGATIVE) Ur Oxycodone Screen Negative (NEGATIVE) Urine Methadone Screen Negative (NEGATIVE) Ur Barbiturates Screen Negative (NEGATIVE) U Tricyclic Antidepress Negative (NEGATIVE) Ur Phencyclidine Scrn Negative (NEGATIVE) Ur Amphetamine Screen Negative (NEGATIVE) U Methamphetamines Scrn Negative (NEGATIVE) Urine MDMA Screen Negative (NEGATIVE) U Benzodiazepines Scrn Negative (NEGATIVE) Urine Cocaine Screen Negative (NEGATIVE) U Marijuana (THC) Screen Negative (NEGATIVE) Influenza Type A RNA Negative (NEGATIVE) Influenza Type B RNA Negative (NEGATIVE) SARS-CoV-2 RNA (MIGUELINA) Negative (NEGATIVE) 08/14/20 08/14/20 Range/Units 15:41 15:41 WBC 10.1 H (5.0-10.0) 10^3/uL RBC 4.53 (4.2-5.4) 10^6/uL Hgb 14.1 D (12.0-16.0) g/dL Hct 40.3 (37.0-47.0) % MCV 89.0 D (80-100) fL MCH 31.1 (27.0-34.0) pg MCHC 35.0 (33.0-35.0) g/dL Plt Count 292 (150-450) 10^3/uL Neut % (Auto) 68.3 (42.2-75.2) % Lymph % (Auto) 21.1 (20.5-50.1) % [place] % (Auto) 6.1 (2-8) % Eos % (Auto) 4.0 H (1.0-3.0) % Baso % (Auto) 0.5 (0.0-1.0) % Sodium 142 (136-145) mmol/L Potassium 4.2 (3.5-5.1) mmol/L Chloride 105 (98-107) mmol/L Carbon Dioxide 27 (21-32) mmol/L Anion Gap 14.2 H (7-13) mEq/L BUN 11 (7-18) mg/dL Creatinine 0.56 (0.55-1.02) mg/dL Est Cr Clr Drug Dosing 116.18 mL/min Estimated GFR (MDRD) > 60 BUN/Creatinine Ratio 19.6 (No establ ref range) Glucose 87 (74-99) mg/dL Calcium 8.7 (8.5-10.1) mg/dL Total Bilirubin 0.4 (0.2-1.0) mg/dL AST 7 L (15-37) U/L ALT 16 (14-59) U/L Alkaline Phosphatase 81 (46-116) U/L Total Protein 6.9 (6.4-8.2) g/dL Albumin 3.4 (3.4-5.0) g/dL Globulin 3.5 Albumin/Globulin Ratio 1.0 Urine Color (YELLOW) Urine Appearance (CLEAR) Urine pH (5.0-9.0) Ur Specific [place] (1.005-1.030) Urine Protein (NEGATIVE) Urine Glucose (UA) (NEGATIVE) Urine Ketones (NEGATIVE) Urine Occult Blood (NEGATIVE) Urine Nitrite (NEGATIVE) Urine Bilirubin (NEGATIVE) Urine Urobilinogen (0.2-1.0) mg/dL Ur Leukocyte Esterase (NEGATIVE) Urine Opiates Screen (NEGATIVE) Ur Oxycodone Screen (NEGATIVE) Urine Methadone Screen (NEGATIVE) Ur Barbiturates Screen (NEGATIVE) U Tricyclic Antidepress (NEGATIVE) Ur Phencyclidine Scrn (NEGATIVE) Ur Amphetamine Screen (NEGATIVE) U Methamphetamines Scrn (NEGATIVE) Urine MDMA Screen (NEGATIVE) U Benzodiazepines Scrn (NEGATIVE) Urine Cocaine Screen (NEGATIVE) U Marijuana (THC) Screen (NEGATIVE) Influenza Type A RNA (NEGATIVE) Influenza Type B RNA (NEGATIVE) SARS-CoV-2 RNA (MIGUELINA) (NEGATIVE) Meds: Medications Discontinued Medications Generic Name Dose Route Start Last Admin Trade Name Freq PRN Reason Stop Dose Admin Sodium Chloride 1,000 mls @ 999 mls/hr 08/14/20 15:19 08/14/20 15:43 Normal Saline IV 08/14/20 16:19 999 mls/hr .BOLUS ONE Administration - Radiology Interpretation Free Text/Narrative:: Chest xray: PROCEDURE INFORMATION: Exam: XR Chest Exam date and time: 08/14/2020 3:53 PM Age: 30 years old Clinical indication: Cough; Additional info: Cough, chest pain TECHNIQUE: Imaging protocol: XR of the chest Views: 2 views. COMPARISON: No relevant prior studies available. FINDINGS: Lungs: Unremarkable. No consolidation. Pleural spaces: Unremarkable. No pleural effusion. No pneumothorax. Heart/Mediastinum: Unremarkable. No cardiomegaly. Bones/joints: Age appropriate. IMPRESSION: Normal chest. Thank you for allowing us to participate in the care of your patient. Dictated and Authenticated by: Noe Burgos MD 08/14/2020 4:27 PM Central Time ([place] & [place]) See rad report Departure - Departure Time of Disposition: 16:52 Disposition: Home, Self-Care 01 Condition: Fair Clinical Impression: Viral syndrome, Anxiety - Discharge Information *PRESCRIPTION DRUG MONITORING PROGRAM REVIEWED*: No *COPY OF PRESCRIPTION DRUG MONITORING REPORT IN PATIENT GIOVANY: No Instructions: Viral Illness, Adult, Managing Anxiety, Adult Forms: ED Department Discharge Additional Instructions: May use Tylenol and/or Ibuprofen as directed for pain/ fever Follow up with your primary care facility next week if no improvement Sepsis Event Note (ED) - Evaluation Sepsis Screening Result: No Definite Risk - Focused Exam Vital Signs: Vital Signs Temp Pulse Resp BP Pulse Ox 08/14/20 13:37 98.2 F 108 H 20 113/68 100 I have read and agree with the documentation that has been completed regarding this visit. By signing this record, I attest that the documentation was completed in my physical presence and is an accurate record of the encounter.
== END 2020-08-14 16:52 | disposition home or self-care (01) ==
LOC: DL.ED 13:00
DX: B34.9 Viral infection, unspecified (principal); F41.9 Anxiety disorder, unspecified; J45.909 Unspecified asthma, uncomplicated; E11.9 Type 2 diabetes mellitus without complications; Z20.822 Contact with and (suspected) exposure to COVID-19
CPT/HCPCS: 0240U; 36415; 71046; 80053; 80305; 81003; 85025; 93005; 99285; J7030

== ENCOUNTER 2022-11-24 20:16 | Emergency (ER) | payer MEDICAID, MEDICARE | END 2022-11-24 22:00 | disposition left against medical advice (07) | LOC: DL.ED 20:16 | DX: Z53.21 Procedure and treatment not carried out due to patient leaving prior to being seen by health care provider (principal) ==

== ENCOUNTER 2022-11-25 10:44 | Emergency (ER) | payer BC, MEDICAID ==
[2022-11-25] MEDS ORDERED: Penicillin G Benzathine/Procaine 600-600 1.2 Millunits/2 ML Syringe IM ONE (11:21)
[2022-11-25] MEDS ORDERED: Ketorolac 30 MG/ML SDV IM ONE (11:27)
[2022-11-25 12:12] VITALS: BP 123/88; PULSE 77
== END 2022-11-25 11:45 | disposition home or self-care (01) ==
LOC: DL.ED 10:44
DX: K04.7 Periapical abscess without sinus (principal); J45.909 Unspecified asthma, uncomplicated; E11.9 Type 2 diabetes mellitus without complications; E66.9 Obesity, unspecified; Z68.30 Body mass index [BMI] 30.0-30.9, adult
CPT/HCPCS: 96372; 99282; 99283; J0558; J1885

== ENCOUNTER 2024-12-10 13:39 | Emergency (ER) | payer SELFPAY ==
[2024-12-10 13:47] VITALS: BP 122/75; PULSE 103
== END 2024-12-10 14:00 | disposition home or self-care (01) ==
LOC: DL.ED 13:39
DX: J06.9 Acute upper respiratory infection, unspecified (principal); E11.65 Type 2 diabetes mellitus with hyperglycemia; Z90.49 Acquired absence of other specified parts of digestive tract
CPT/HCPCS: 82947; 99284